=== PATIENT | male | born 1965 | race African-American/Black ===

== ENCOUNTER 2020-02-05 16:15 | Emergency (ER) | payer OTHER, SELFPAY ==
[~2020-02-05 16:15] MED LIST: Iopamidol 370 76% 100 ML VIAL ONE
[2020-02-05 17:00] LABS: ALT (SGPT) 35 U/L (8-55); AST (SGOT) 17 U/L (5-34); Albumin 4.1 g/dL (3.5-5.0); Alkaline Phosphatase 53 U/L (40-110); Anion Gap 15 mmol/L (10-20); BUN (Urea Nitrogen) 17 mg/dL (8.4-25.7); Bilirubin, Total 1.9 mg/dL (0.2-1.2); Calc. Creatinine Clearance 0 mL/min (70-130); Calcium 8.9 mg/dL (7.8-10.44); Carbon Dioxide 28 mmol/L (22-29); Chloride 104 mmol/L (98-107); Globulin 3.3 g/dL (2.4-3.5); Glucose 106 mg/dL (70-105); Lipase 13 U/L (8-78); Protein, Total 7.4 g/dL (6.0-8.3); Sodium 144 mmol/L (136-145)
[2020-02-05 17:02] LABS: Hemoglobin 14.8 g/dL (14.0-18.0); Mean Corpuscular Hemoglobin 32.1 pg (27.0-31.0); Mean Platelet Volume 6.7 fL (7.4-10.4); Platelet Count 233 thou/uL (130-400); RBC Distribution Width 11.9 % (11.5-14.5); Red Blood Cell (RBC) Count 4.61 mill/uL (4.70-6.10); White Blood Cell (WBC) Count 11.9 thou/uL (4.8-10.8)
[2020-02-05 17:06] LABS: Band 3 % (5-11); Lymphocytes 10 % (21-51); MDiff Complete? YES; Monocytes 16 % (0-10); Neutrophil 71 % (42-75)
--- NOTE | 2020-02-05 17:40 | RAD ---
PORTABLE CHEST: 02/05/20 An AP portable film at 1646 is compared with a 04/28/09 study. The heart is enlarged, a bit more so than before. There is no congestive change apparent. The lungs a re clear. No effusions are present. IMPRESSION: Cardiomegaly. POS: HOME
[2020-02-05] MEDS ORDERED: Ketorolac Tromethamine 30 MG/ML VIAL ONE (17:58)
[2020-02-05] MEDS ORDERED: Dicyclomine 20 MG TAB ONE (17:58)
--- NOTE | 2020-02-05 20:14 | CT ---
CT ABDOMEN AND PELVIS WITH CONTRAST 02/05/20 Comparison is made with the 05/23/13 scan. The lung bases are clear. The liver, spleen, pancreas, adrenal glands, and aorta were unremarkable. T he right kidney appears normal. There is mild left hydronephrosis due to a 4 mm distal left ureteral calculus. It is located just abo ve the acetabular level. The kidney otherwise appears normal. The bowel shows no distention, wall thickening or inflammatory change. No free air of free fluid was present. CT of the pelvis shows no pelvic masses, fluid collections, or inflammatory changes. IMPRESSION: 4 mm distal left ureteral calculus just above the acetabular level causing mild left hydronephrosis. Preliminary findings discussed with Dr. [email or web address] at 1745 on 02/05/20. POS: HOME
== END 2020-02-05 18:35 | disposition home or self-care (01) ==
LOC: BURERS 16:15
DX: N13.2 Hydronephrosis with renal and ureteral calculous obstruction (principal); I10 Essential (primary) hypertension; J45.909 Unspecified asthma, uncomplicated; Z86.73 Personal history of transient ischemic attack (TIA), and cerebral infarction without residual deficits; Z79.82 Long term (current) use of aspirin; Z79.899 Other long term (current) drug therapy
CPT/HCPCS: 71045; 74177; 80053; 83690; 83880; 84484; 85025; 93005; 94760; 96374; J1885; Q9967

== ENCOUNTER 2020-02-23 15:56 | Emergency (ER) | payer SELFPAY ==
[2020-02-23 16:52] LABS: #Basophils 0.1 thou/uL (0.0-0.2); #Lymphocytes 1.8 thou/uL (1.20-3.40); #Monocytes 0.7 thou/uL (0.11-0.59); %Basophils 0.5 % (0.0-1.0); %Eosinophils 0.5 % (0.0-10.0); %Lymphocytes 17.1 % (21.0-51.0); %Monocytes 6.3 % (0.0-10.0); %Neutrophils 75.5 % (42.0-75.0); Hemoglobin 14.8 g/dL (14.0-18.0); Mean Corpuscular HGB CONC 30.5 g/dL (32.0-36.0); Mean Corpuscular Hemoglobin 31.4 pg (27.0-31.0); Mean Platelet Volume 6.3 fL (7.4-10.4); Platelet Count 270 thou/uL (130-400); RBC Distribution Width 12.3 % (11.5-14.5); Red Blood Cell (RBC) Count 4.72 mill/uL (4.70-6.10); White Blood Cell (WBC) Count 10.5 thou/uL (4.8-10.8)
[2020-02-23 17:14] LABS: ALT (SGPT) 57 U/L (8-55); AST (SGOT) 30 U/L (5-34); Albumin 4.1 g/dL (3.5-5.0); Alkaline Phosphatase 57 U/L (40-110); Anion Gap 18 mmol/L (10-20); BUN (Urea Nitrogen) 16 mg/dL (8.4-25.7); Bilirubin, Total 2.1 mg/dL (0.2-1.2); Calc. Creatinine Clearance 0 mL/min (70-130); Calcium 9.3 mg/dL (7.8-10.44); Carbon Dioxide 31 mmol/L (22-29); Chloride 102 mmol/L (98-107); Globulin 3.1 g/dL (2.4-3.5); Glucose 91 mg/dL (70-105); Potassium 3.1 mmol/L (3.5-5.1); Protein, Total 7.2 g/dL (6.0-8.3); Sodium 148 mmol/L (136-145)
[2020-02-23] MEDS ORDERED: Potassium Chloride 20 MEQ TAB ONE (18:28)
--- NOTE | 2020-02-23 19:16 | RAD ---
CHEST ONE VIEW: 02/23/20 INDICATION: History of weakness. COMPARISON: Prior exam dated 02/05/20. FINDINGS: Lungs are clear. Heart size is normal. No acute osseous abnormality is evident. IMPRESSION: No acute cardiopulmonary abnormality. POS: [facility]
== END 2020-02-23 18:35 | disposition home or self-care (01) ==
LOC: BURERS 15:56
DX: R53.1 Weakness (principal); F32.9 Major depressive disorder, single episode, unspecified; I10 Essential (primary) hypertension; J45.909 Unspecified asthma, uncomplicated; Z86.73 Personal history of transient ischemic attack (TIA), and cerebral infarction without residual deficits; Z79.82 Long term (current) use of aspirin; Z79.899 Other long term (current) drug therapy
CPT/HCPCS: 36415; 71045; 80053; 83880; 84443; 84484; 85025; 93005

== ENCOUNTER 2022-01-30 16:14 | Emergency (ER) | payer MEDICARE, SELFPAY ==
[2022-01-30 17:16] LABS: Bilirubin Negative (Negative); Blood, Urine Trace (Negative); Clarity Clear (Clear); Glucose, Urine (Dipstick) Negative (Negative); Ketone, Urine Negative (Negative); Leukocyte Small (Negative); Nitrite Negative (Negative); Protein, Urine (Dipstick) Negative (Neg-Trace); pH, Urine 7.5 (5.0-9.0)
[2022-01-30 17:23] LABS: Bacteria/HPF None Seen HPF (None Seen); Squamous Epithelial 0-3 HPF (0-3)
[2022-01-30 17:46] LABS: Band 3 % (5-11); Hemoglobin 14.7 g/dL (14.0-18.0); Lymphocytes 22 % (21-51); MDiff Complete? YES; Mean Corpuscular HGB CONC 31.2 g/dL (32.0-36.0); Mean Corpuscular Hemoglobin 31.6 pg (27.0-31.0); Mean Platelet Volume 6.3 fL (7.4-10.4); Monocytes 2 % (0-10); Neutrophil 73 % (42-75); Platelet Count 304 10x3/uL (130-400); RBC Distribution Width 12.1 % (11.5-14.5); Red Blood Cell (RBC) Count 4.67 mill/uL (4.70-6.10); White Blood Cell (WBC) Count 8.9 10x3/uL (4.8-10.8)
[2022-01-30 17:59] LABS: ALT (SGPT) 14 U/L (8-55); AST (SGOT) 18 U/L (5-34); Albumin 4.3 g/dL (3.5-5.0); Alkaline Phosphatase 56 U/L (40-110); Anion Gap 15 mmol/L (10-20); BUN (Urea Nitrogen) 11 mg/dL (8.4-25.7); Bilirubin, Total 1.9 mg/dL (0.2-1.2); Calc. Creatinine Clearance 0 mL/min (70-130); Calcium 9.5 mg/dL (7.8-10.44); Carbon Dioxide 25 mmol/L (22-29); Chloride 103 mmol/L (98-107); Estimated GFR 88; Globulin 3.6 g/dL (2.4-3.5); Glucose 90 mg/dL (70-105); Potassium 4.1 mmol/L (3.5-5.1); Protein, Total 7.9 g/dL (6.0-8.3); Sodium 139 mmol/L (136-145)
[2022-01-30] MEDS ORDERED: Doxycycline 100 MG CAP ONE (19:28)
[2022-01-30] MEDS ORDERED: predniSONE 20 MG TAB ONE (19:28)
== END 2022-01-30 19:41 | disposition home or self-care (01) ==
LOC: BURERS 16:14
DX: J22 Unspecified acute lower respiratory infection (principal); I10 Essential (primary) hypertension
CPT/HCPCS: 36415; 71045; 71250; 80053; 81003; 81015; 83880; 84484; 85025; 93005; J7512

== ENCOUNTER 2022-02-24 14:52 | Outpatient (CLI) | payer MEDICARE | END 2022-02-24 14:53 | disposition home or self-care (01) | LOC: BUR/OP 14:52 | PROVIDERS: ATTEND Physician Assistant | DX: J40 Bronchitis, not specified as acute or chronic (principal) | CPT/HCPCS: 71046 ==

== ENCOUNTER 2022-10-12 15:37 | Emergency (ER) | payer MEDICARE ==
[2022-10-12] MEDS ORDERED: Guaifenesin DM 100-10/5 ML UDCUP ONE (16:15)
== END 2022-10-12 16:35 | disposition home or self-care (01) ==
LOC: BURERS 15:37
DX: R09.81 Nasal congestion (principal); I10 Essential (primary) hypertension
CPT/HCPCS: 99283